=== PATIENT | male | born 1970 | race Caucasian/White ===

== ENCOUNTER 2017-12-03 14:02 | Emergency (ER) | payer OTHER ==
[~2017-12-03] VITALS: Ht 167.6 cm; Wt 97.5 kg
--- NOTE | ~2017-12-03 | EKG ---
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
[~2017-12-03 14:02] MED LIST: 'CLONIDINE0.1 MG PO; ATIVAN1 MG PO; Anusol Hc,Anuco25 MG PO; BACTRIM DS 8001 TA1 PO; HYDROXYZINE PAM50 MG PO; IMITREX50 MG PO; MOTRIN800 MG PO; NICOTINE T21 MG/24 H T; NKHM; NKHM PO; ROBAXIN750 MG PO; SUBUTEX8 M1 SL; THERA1 TAB PO; TOBRADEX 0.1%-0.5 ML OPH; VITAMIN B-11 TAB PO; ZOFRAN ODT4 MG SL; [UNRECOGNIZED DRUG - REMARK]
[2017-12-03 14:24] LABS: BASO % 0.5 % (0.0-1.0); EOS # 0.6 10*3/uL (0.0-0.4); EOS % 7.2 % (1.0-4.0); HEMATOCRIT 40.1 % (42.0-52.0); HEMOGLOBIN 13.6 g/dl (14.0-18.0); LYMPH # 1.9 10*3/uL (1.3-4.4); LYMPH % 23.2 % (27.0-41.0); MEAN CELL VOLUME 93.9 fl (80.0-94.0); MEAN CORPUSCULAR HGB 31.9 pg (27.0-31.0); MEAN CORPUSCULAR HGB CONC 33.9 g/dl (33.0-37.0); MEAN PLATELET VOLUME 9.3 fl (9.6-12.3); MONO # 0.6 10*3/uL (0.1-1.0); MONO % 7.6 % (3.0-9.0); NEUT # 5.1 10*3/uL (2.3-7.9); NEUT % 61.3 % (47.0-73.0); PLATELET COUNT AUTOMATED 283 10*3/uL (130-400); RED BLOOD COUNT 4.27 10*6/uL (4.50-5.90); RED CELL DISTRI WIDTH 12.5 % (0-14.5); WHITE BLOOD COUNT 8.3 10*3/uL (4.8-10.8)
[2017-12-03 14:41] LABS: ALBUMIN 3.7 gm/dl (3.1-4.5); ALKALINE PHOSPHATASE 77 U/L (45-117); BUN 8 mg/dl (7-24); CHLORIDE 105 mmol/L (98-107); CREATININE 0.77 mg/dL (0.70-1.30); POTASSIUM 3.9 mmol/L (3.5-5.1); SGOT/AST 46 IU/L (3-35); SGPT/ALT 61 U/L (12-78); SODIUM 137 mmol/L (136-145)
[2017-12-03 14:51] LABS: ETHYL ALCOHOL < 3.0 mg/dl (<3)
[2017-12-03 14:52] LABS: ACETAMINOPHEN (TYLENOL) < 2.0 ug/ml (10-30)
[2017-12-03 15:42] LABS: URINE AMPHETAMINES < 1000 (1000ng/ml); URINE BARBITURATES < 200 (200ng/ml); URINE BENZODIAZEPINES < 200 (200ng/ml); URINE CANNABINOIDS (THC) < 50 (50ng/ml); URINE COCAINE < 300 (300ng/ml); URINE METHADONE < 300 (300ng/ml); URINE OPIATES < 300 (300ng/ml)
[2017-12-03 15:44] LABS: BILIRUBIN NEGATIVE (NEGATIVE); BLOOD NEGATIVE (NEGATIVE); CLARITY CLEAR (CLEAR); COLOR YELLOW (YELLOW); GLUCOSE NEGATIVE (NEGATIVE); KETONE NEGATIVE (NEGATIVE); LEUKO ESTERASE NEGATIVE (NEGATIVE); NITRITE NEGATIVE (NEGATIVE); PH 7.5 (5.0-9.0); SPECIFIC GRAVITY 1.015 (1.005-1.030)
[2017-12-03 15:46] LABS: URINE PHENCYCLIDINE < 25 (25ng/ml)
[2017-12-03 15:51] LABS: WBC 0-2 wbc/hpf (0-5)
[2017-12-03] MEDS ORDERED: ZOFRAN4 MG PO (16:27)
[2017-12-03] MEDS ORDERED: ZANTAC 150150 MG PO (16:27)
[2017-12-03] MEDS ORDERED: VISTARIL25 MG PO (16:27)
== END 2017-12-03 16:45 | disposition home or self-care (01) ==
LOC: ED 14:02
PROVIDERS: Nurse Practitioner Family
DX: F41.9 Anxiety disorder, unspecified (principal); R03.0 Elevated blood-pressure reading, without diagnosis of hypertension; F11.10 Opioid abuse, uncomplicated; F19.10 Other psychoactive substance abuse, uncomplicated; G43.909 Migraine, unspecified, not intractable, without status migrainosus; F17.210 Nicotine dependence, cigarettes, uncomplicated

== ENCOUNTER 2018-01-15 14:21 | Emergency (ER) | payer OTHER ==
[~2018-01-15] VITALS: Ht 167.6 cm; Wt 95.3 kg
[~2018-01-15 14:21] MED LIST changes: +VISTARIL25 MG PO; +ZANTAC 150150 MG PO; +ZOFRAN4 MG PO
[2018-01-15 15:01] LABS: URINE AMPHETAMINES < 1000 (1000ng/ml); URINE BARBITURATES < 200 (200ng/ml); URINE BENZODIAZEPINES < 200 (200ng/ml); URINE CANNABINOIDS (THC) < 50 (50ng/ml); URINE COCAINE < 300 (300ng/ml); URINE METHADONE < 300 (300ng/ml); URINE OPIATES > 300 (300ng/ml); URINE PHENCYCLIDINE < 25 (25ng/ml)
[2018-01-15 15:07] LABS: ALBUMIN 3.9 gm/dl (3.1-4.5); ALKALINE PHOSPHATASE 73 U/L (45-117); BUN 10 mg/dl (7-24); CHLORIDE 108 mmol/L (98-107); CREATININE 0.96 mg/dL (0.70-1.30); POTASSIUM 4.3 mmol/L (3.5-5.1); SGOT/AST 37 IU/L (3-35); SGPT/ALT 80 U/L (12-78); SODIUM 138 mmol/L (136-145); TOTAL PROTEIN 8.3 gm/dL (6.4-8.2)
== END 2018-01-15 15:14 | disposition home or self-care (01) ==
LOC: ED 14:21
PROVIDERS: Physician Assistant
DX: R25.1 Tremor, unspecified (principal); R61 Generalized hyperhidrosis; R45.1 Restlessness and agitation; R82.5 Elevated urine levels of drugs, medicaments and biological substances; F17.210 Nicotine dependence, cigarettes, uncomplicated; Z13.89 Encounter for screening for other disorder

== ENCOUNTER 2018-03-25 16:53 | Inpatient (IN) | payer OTHER ==
[~2018-03-25] VITALS: Ht 167.6 cm; Wt 96.8 kg
--- NOTE | ~2018-03-25 | EKG ---
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
[2018-03-25 16:54] VITALS: BP 118/81; BP 136/81
[2018-03-25 18:19] LABS: BILIRUBIN NEGATIVE (NEGATIVE); BLOOD NEGATIVE (NEGATIVE); CLARITY CLEAR (CLEAR); COLOR YELLOW (YELLOW); GLUCOSE NEGATIVE (NEGATIVE); KETONE NEGATIVE (NEGATIVE); LEUKO ESTERASE NEGATIVE (NEGATIVE); NITRITE NEGATIVE (NEGATIVE); PH 5.5 (5.0-9.0); SPECIFIC GRAVITY 1.025 (1.005-1.030); UROBILINOGEN 0.2 E.U./dl (0.2-1.0)
[2018-03-25 18:26] LABS: BACTERIA TRACE; EPITHELIAL CELLS 0-2; MUCOUS TRACE; RBC 0-2 rbc/hpf (0-2); WBC 0-2 wbc/hpf (0-5)
[2018-03-25 18:29] LABS: URINE AMPHETAMINES < 1000 (1000ng/ml); URINE BARBITURATES < 200 (200ng/ml); URINE BENZODIAZEPINES < 200 (200ng/ml); URINE CANNABINOIDS (THC) < 50 (50ng/ml); URINE COCAINE > 300 (300ng/ml); URINE METHADONE < 300 (300ng/ml); URINE OPIATES > 300 (300ng/ml)
[2018-03-25 18:34] LABS: URINE PHENCYCLIDINE < 25 (25ng/ml)
[2018-03-25 18:43] VITALS: BP 126/77
--- NOTE | 2018-03-25 18:43 | NUR ---
48 year old MALE admitted to room # for stabilization. 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 Compliant with admission procedure. Patient denies any anxiety, but is unable to sit still, taps toes to floor continuously, looks about room, unable to focus eyes on nurse during interview. See assessment forms for additional information about patient status.
[2018-03-25 19:30] LABS: BASO # 0.1 10*3/uL (0.0-0.1); BASO % 0.8 % (0.0-1.0); EOS # 0.8 10*3/uL (0.0-0.4); EOS % 12.7 % (1.0-4.0); HEMATOCRIT 41.8 % (42.0-52.0); HEMOGLOBIN 14.1 g/dl (14.0-18.0); LYMPH # 2.2 10*3/uL (1.3-4.4); LYMPH % 37.1 % (27.0-41.0); MEAN CELL VOLUME 94.8 fl (80.0-94.0); MEAN CORPUSCULAR HGB CONC 33.7 g/dl (33.0-37.0); MEAN PLATELET VOLUME 9.4 fl (9.6-12.3); MONO # 0.7 10*3/uL (0.1-1.0); MONO % 11.7 % (3.0-9.0); NEUT # 2.3 10*3/uL (2.3-7.9); NEUT % 37.5 % (47.0-73.0); PLATELET COUNT AUTOMATED 260 10*3/uL (130-400); RED BLOOD COUNT 4.41 10*6/uL (4.50-5.90)
--- NOTE | 2018-03-25 19:44 | NUR ---
PT. C/O ANXIETY, MUSCLE CRAMPING, STOMACHE CRAMPING. VISTARIL, ROBAXIN AND BENTYL GIVEN PER ORDER FOR WITHDRAWL SYMPTOMS.
[2018-03-25 19:47] LABS: ALBUMIN 3.4 gm/dl (3.1-4.5); ALKALINE PHOSPHATASE 80 U/L (45-117); BUN 11 mg/dl (7-24); CHLORIDE 109 mmol/L (98-107); CREATININE 0.92 mg/dL (0.70-1.30); ETHYL ALCOHOL < 3.0 mg/dl (<3); POTASSIUM 4.1 mmol/L (3.5-5.1); SGOT/AST 51 IU/L (3-35); SGPT/ALT 87 U/L (12-78); SODIUM 139 mmol/L (136-145); TOTAL PROTEIN 7.5 gm/dL (6.4-8.2)
[2018-03-25 20:00] VITALS: BP 121/76
--- NOTE | 2018-03-25 20:44 | NUR ---
WITHDRAWAL MEDICATIONS VISTARIL, ROBAXIN, AND BENTYL EFFECTIVE, PATIENT SLEEPING COMFORTABLY.
--- NOTE | 2018-03-25 23:36 | NUR ---
24 HR chart check completed.
[2018-03-26] VITALS: BP 109/95
[2018-03-26 04:00] VITALS: BP 106/63
--- NOTE | 2018-03-26 05:07 | NUR ---
PT. C/O MUSCLE AND STOMACH CRAMPING. BENTYL AND ROBAXIN GIVEN PER ORDER FOR WITHDRAWL SYMPTOMS. SEE MAR.
--- NOTE | 2018-03-26 06:00 | NUR ---
WITHDRAWAL MEDICATIONS ROBAXIN AND BENTYL EFFECTIVE FOR MUSCLE CRAMPING. PT SLEEPING.
[2018-03-26 08:00] VITALS: BP 107/69
[2018-03-26 12:00] VITALS: BP 124/85
--- NOTE | 2018-03-26 15:49 | NUR ---
VISTARIL GIVEN FOR ANXIETY. MOTRIN AND REQUIP GIVEN FOR LEG PAIN AND CRAMPTING.
[2018-03-26 16:00] VITALS: BP 124/86
--- NOTE | 2018-03-26 16:50 | NUR ---
STATES THAT MEDICATION WAS NOT EFFECTIVE FOR LEG PAIN. REFUSING TYLENOL AT THIS TIME. STATES THAT HE IS GOING TO TRY TO WALK AROUND.
[2018-03-26 20:00] VITALS: BP 123/58
--- NOTE | 2018-03-26 21:02 | NUR ---
ROBAXIN GIVEN PER PT REQUEST FOR RESTLESS MUSCLES. SCHEDULED SUBUTEX PROVIDED AT THIS TIME. PT DENIES FURTHER NEEDS, STATES HE WOULD LIKE TO SLEEP. WILL MONITOR.
--- NOTE | 2018-03-26 23:22 | NUR ---
24 HR chart check completed.
[2018-03-27] VITALS: BP 126/64
--- NOTE | 2018-03-27 00:30 | NUR ---
Patient resting. Responding to scheduled medications with fewer complaints of pain and anxiety.
--- NOTE | 2018-03-27 05:08 | NUR ---
Patient displaying withdrawal symptoms, including: irritability, anxiousness, restlessness and agitation. Scheduled/PRN medications provided, SEE EMAR. Will continue to monitor medication effectiveness.
--- NOTE | 2018-03-27 06:00 | NUR ---
Patient resting. Responding to scheduled medications with fewer complaints of pain and anxiety.
[2018-03-27 08:00] VITALS: BP 134/82
--- NOTE | 2018-03-27 09:11 | NUR ---
DR. PATEL TO CONTINUE HOME MEDICATION AND TOLD TO STOP CARDIZEM DRIP. HEART RATE IN THE 80S AT THIS TIME.
--- NOTE | 2018-03-27 09:12 | NUR ---
PATIENTS MORNING MEDICATIONS GIVEN. PATIENT VOICES NO COMPLAINTS AT THIS TIME. WILL CONTINUE TO MONITOR.
--- NOTE | 2018-03-27 11:33 | NUR ---
PATIENT MEETS [facility]. PATIENT WANTS TO GO TO [facility] FOR INPATIENT TREATMENT. PATIENT WAS PUT ON A WAITING LIST. PATIENT IS REQUIRING TO CALL FACILITY ON DAILY BASIS. [facility] STAFF WILL PROVIDE PATIENT WITH A LIST A NA AND AA MEETINGS IN THE LOCAL AREA. PATIENT AGREES AND UNDERSTAND HIS AFTERCARE PLAN. PRINCESS MOULTON B.A. SLITTER CREASER SLOTTER OPERATOR
[2018-03-27 12:00] VITALS: BP 118/95
--- NOTE | 2018-03-27 14:13 | NUR ---
PATIENT MEDICATED WITH VISTARIL. PATIENT STATES HE IS REALLY ANXIOUS
[2018-03-27 16:00] VITALS: BP 122/77
--- NOTE | 2018-03-27 16:12 | NUR ---
[facility] STAFF RECEIVED A CALL FROM [facility]. THEY STATED THAT SINCE HIS GIRLFRIEND IN AT THEIR FACILITY, THE PATIENT IS UNABLE TO GO AT THIS TIME. PATIENT AGREED TO HAVE [facility] SEND ASSESSMENT TO [facility]UAN [facility]OS[facility] TO CHECK FOR AVAILABILITY. [facility] STAFF PROVIDED PATIENT WITH LOCAL AA/NA MEEETINGS IN HIS LOCAL AREA. PRINCESS MOULTON B.A. STACKER ATTENDANT
[2018-03-27 20:00] VITALS: BP 133/79
--- NOTE | 2018-03-27 21:30 | NUR ---
TOOK OVER CARE OF PT, PT LYING IN BED, ASSESSMENT COMPLETE. PT C/O MUSCLE ACHES, STOMACH CRAMPS, RESTLESS LEGS, AND INSOMNIA. PT STATES THAT TRAZODOE INCREASES HIS RESTLESS LEGS SYMPTOMS AND STATES THAT BENADRYL WORKS BETTER FOR HIM. PT ALSO STATES THAT HE HAS TAKEN CLONIDINE IN THE PAST AND THAT HELPS WITH HIS ANXIETY. WILL NOTIFY PHYSICIAN. CALL LIGHT IN REACH.
--- NOTE | 2018-03-27 22:00 | NUR ---
DR MENDEZ NOTIFIED THAT PT IS REQUESTING CLONIDINE AND BENADRYL FOR ANXIETY AND SLEEP. NEW ORDERS RECEIVED FOR ONE TIME ORDER OF BENADRYL 25 MG PO. PT AWARE.
--- NOTE | 2018-03-27 23:50 | NUR ---
PRN MEDICATION EFFECTIVE.
--- NOTE | 2018-03-27 23:50 | NUR ---
PT GIVEN ROBAXIN, REQUIP, BENTYL, AND BENADRYL FOR WITHDRAWAL SYMPTOMS. WILL MONITOR FOR EFFECTIVENESS.
[2018-03-28] VITALS: BP 114/76
[2018-03-28 08:00] VITALS: BP 121/78
--- NOTE | 2018-03-28 08:23 | NUR ---
PT MEDICATED WITH ROBAXIN AND REQUIP FOR C/O RESTLESS LEGS AND LEG ACHES. WILL MONITOR FOR EFFECTIVENESS.
[2018-03-28] MEDS ORDERED: METHOCARBAMOL750 M1 PO (11:12)
--- NOTE | 2018-03-28 11:35 | NUR ---
Discharge instructions reviewed with patient/family. Patient receptive and verbalizes understanding. Follow-up care arranged. Written instructions given to patient/family. [facility] CALLED AND PATIENT AMBULATORY OFF FLOOR TO MEET CAB. RAMESH MANN
[2018-08-11] MEDS ORDERED: IBU800 MG PO (15:54)
== END 2018-03-28 11:35 | disposition home or self-care (01) | DRG 897 ==
LOC: ED 16:53 → 4E 18:17 → EDHOLD 18:17 → 4E 18:26
PROVIDERS: Emergency Medicine; Internal Medicine Nephrology; ADMIT Internal Medicine
DX: F11.23 Opioid dependence with withdrawal (principal); R61 Generalized hyperhidrosis; B19.20 Unspecified viral hepatitis C without hepatic coma; Z71.6 Tobacco abuse counseling; F12.10 Cannabis abuse, uncomplicated; F41.9 Anxiety disorder, unspecified; G43.909 Migraine, unspecified, not intractable, without status migrainosus; D75.89 Other specified diseases of blood and blood-forming organs; E87.8 Other disorders of electrolyte and fluid balance, not elsewhere classified; R74.0 Nonspecific elevation of levels of transaminase and lactic acid dehydrogenase [LDH]; F17.210 Nicotine dependence, cigarettes, uncomplicated; F14.10 Cocaine abuse, uncomplicated; Z72.89 Other problems related to lifestyle; Z82.49 Family history of ischemic heart disease and other diseases of the circulatory system; Z83.3 Family history of diabetes mellitus

== ENCOUNTER 2018-08-21 09:48 | Emergency (ER) | payer OTHER ==
[~2018-08-21] VITALS: Ht 167.6 cm; Wt 95.3 kg
[~2018-08-21 09:48] MED LIST changes: +IBU800 MG PO; +METHOCARBAMOL750 M1 PO
[2018-08-21 10:35] LABS: BASO # 0.1 10*3/uL (0.0-0.1); BASO % 0.8 % (0.0-1.0); EOS # 0.5 10*3/uL (0.0-0.4); EOS % 7.8 % (1.0-4.0); HEMATOCRIT 46.7 % (42.0-52.0); HEMOGLOBIN 15.6 g/dl (14.0-18.0); LYMPH # 1.6 10*3/uL (1.3-4.4); LYMPH % 26.8 % (27.0-41.0); MEAN CELL VOLUME 95.7 fl (80.0-94.0); MEAN CORPUSCULAR HGB CONC 33.4 g/dl (33.0-37.0); MEAN PLATELET VOLUME 9.3 fl (9.6-12.3); MONO # 0.6 10*3/uL (0.1-1.0); MONO % 10.1 % (3.0-9.0); NEUT # 3.3 10*3/uL (2.3-7.9); NEUT % 54.2 % (47.0-73.0); PLATELET COUNT AUTOMATED 416 10*3/uL (130-400); RED BLOOD COUNT 4.88 10*6/uL (4.50-5.90); RED CELL DISTRI WIDTH 12.8 % (0-14.5); WHITE BLOOD COUNT 6.1 10*3/uL (4.8-10.8)
[2018-08-21 10:51] LABS: ALBUMIN 3.8 gm/dl (3.1-4.5); ALKALINE PHOSPHATASE 78 U/L (45-117); BUN 14 mg/dl (7-24); CHLORIDE 106 mmol/L (98-107); CREATININE 0.92 mg/dL (0.70-1.30); LIPASE 137 U/L (73-393); POTASSIUM 4.4 mmol/L (3.5-5.1); SGOT/AST 22 IU/L (3-35); SGPT/ALT 40 U/L (12-78); SODIUM 138 mmol/L (136-145); TOTAL PROTEIN 8.5 gm/dL (6.4-8.2)
[2018-08-21] MEDS ORDERED: Motrin,Rufen800 MG PO (11:21)
[2018-08-21] MEDS ORDERED: ZOFRAN4 MG PO (11:21)
[2018-08-21] MEDS ORDERED: PERCOCET 5-3251 EACH PO (11:21)
== END 2018-08-21 11:25 | disposition home or self-care (01) ==
LOC: ED 09:48
PROVIDERS: Emergency Medicine
DX: S82.832D Other fracture of upper and lower end of left fibula, subsequent encounter for closed fracture with routine healing (principal); R11.10 Vomiting, unspecified; G43.909 Migraine, unspecified, not intractable, without status migrainosus; F12.10 Cannabis abuse, uncomplicated; F11.10 Opioid abuse, uncomplicated; F17.200 Nicotine dependence, unspecified, uncomplicated; Z79.899 Other long term (current) drug therapy; W17.2XXD Fall into hole, subsequent encounter

== ENCOUNTER 2018-10-21 19:36 | Inpatient (IN) | payer OTHER ==
[~2018-10-21] VITALS: Ht 167.6 cm
--- NOTE | ~2018-10-21 | EKG ---
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: Annalise Adams : 1970 Requested By: RASHAD HERNANDEZ Order Number: [id number] Reading MD: Elijah Berger Measurements Intervals [place] Rate: 100 P: 42 LA: 132 QRS: 7 QRSD: 80 T: 47 QT: 328 QTc: 423 Interpretive Statements Sinus tachycardia Left atrial enlargement Low voltage, precordial leads Abnormal R-wave progression, early transition Compared to ECG 03/25/2018 18:54:11 Atrial abnormality now present Sinus rhythm no longer present Electronically Signed On 10-22-2018 9:07:21 PDT by Elijah Berger CM:EKGRPT:ELECTROCARDIOGRAM REPORT [id number] RASHAD BROWER DRAFT REPORT RASHAD HINSON
[~2018-10-21 19:36] MED LIST changes: +Motrin,Rufen800 MG PO; +PERCOCET 5-3251 EACH PO
[2018-10-21 19:40] VITALS: BP 102/57
[2018-10-21 20:22] LABS: BASO # 0.1 10*3/uL (0.0-0.1); BASO % 0.4 % (0.0-1.0); EOS % 0.3 % (1.0-4.0); HEMATOCRIT 42.7 % (42.0-52.0); HEMOGLOBIN 14.5 g/dl (14.0-18.0); LYMPH # 1.5 10*3/uL (1.3-4.4); LYMPH % 10.3 % (27.0-41.0); MEAN CELL VOLUME 94.3 fl (80.0-94.0); MEAN PLATELET VOLUME 10.3 fl (9.6-12.3); MONO # 0.9 10*3/uL (0.1-1.0); MONO % 6.1 % (3.0-9.0); NEUT # 11.6 10*3/uL (2.3-7.9); NEUT % 82.5 % (47.0-73.0); PLATELET COUNT AUTOMATED 430 10*3/uL (130-400); RED BLOOD COUNT 4.53 10*6/uL (4.50-5.90); RED CELL DISTRI WIDTH 13.3 % (0-14.5)
[2018-10-21 21:05] LABS: ALBUMIN 4.3 gm/dl (3.1-4.5); CREATININE 2.19 mg/dL (0.70-1.30); POTASSIUM 4.4 mmol/L (3.5-5.1); TOTAL PROTEIN 9.1 gm/dL (6.4-8.2); TROPONIN I 0.043 ng/ml (<0.045)
[2018-10-21 22:30] VITALS: BP 113/68
--- NOTE | 2018-10-21 22:30 | NUR ---
A 48, admitted to , under the services of MAYNOR Palacios DO with a diagnosis of ORTHOSTATIC HYPOTENSION. KATELYNN. Chief complaint is SYNCOPY X 1 WK. INCREASED WEAKNESS AND FATIGUE. INCREASED THRIST. ADMITS TO HEROIN USE 10/21 AM. Patient arrived via wheel chair from ER. Monitor applied. Initial assessment completed. Vital signs taken and recorded. MAYNOR PALACIOS DO / DR AMOS notified of admission to the unit. Orders received. See assessment for past medical history, medications and allergies. Patient and/or family oriented to unit. [facility] visitation policy reviewed. Clothing/patient valuable form completed. ANA MARÍA LARKIN
[2018-10-21] MEDS ORDERED: SUBOXONE 8 MG-1 EACH SL (22:44)
[2018-10-21 22:47] LABS: ACT PARTIAL THROMBO TIME 23.4 SECONDS (20.0-32.1); INTERNATIONAL NORM RATIO 0.9 (2.0-3.5)
--- NOTE | 2018-10-21 23:18 | NUR ---
REQUESTED AND RECEIVED RESTORIL TO ASSIST WITH SLEEP. WILL MONITOR FOR EFFECTIVENESS
[2018-10-22] VITALS: BP 113/68
--- NOTE | 2018-10-22 00:30 | NUR ---
EARLIER RESTORIL EFFECTIVE. SLEEPING. RESPIRATIONS EASY. VSS. IV FLUIDS MAINTAINED. CALL LIGHT WITHIN REACH
--- NOTE | 2018-10-22 02:20 | NUR ---
SLEEPING SNORING LOUDLY. RESPIRATIONS EASY. IV FLUIDS MAINTAINED. CALL LIGHT WITHIN REACH
--- NOTE | 2018-10-22 06:15 | NUR ---
REFUSED AM LABS. STILL HAS YET TO PROVIDE URINE. CUP PRESENT AT BEDSIDE
--- NOTE | 2018-10-22 07:00 | NUR ---
PATIENT SLEPT SINCE RECEIVING RESTORIL. AWAKENED THIS AM FOR ORTHOS LAYING 100/60 63 SITTING 106/70 65 STANDING 102/66 64 PATIENT COMPLAINS OF DIZZINESS
[2018-10-22 08:00] VITALS: BP 102/62
[2018-10-22 09:42] LABS: BILIRUBIN NEGATIVE (NEGATIVE); BLOOD NEGATIVE (NEGATIVE); CLARITY CLOUDY (CLEAR); COLOR YELLOW (YELLOW); GLUCOSE NEGATIVE (NEGATIVE); KETONE NEGATIVE (NEGATIVE); LEUKO ESTERASE NEGATIVE (NEGATIVE); NITRITE NEGATIVE (NEGATIVE); PH 5.5 (5.0-9.0); SPECIFIC GRAVITY >= 1.030 (1.005-1.030); UROBILINOGEN 0.2 E.U./dl (0.2-1.0)
[2018-10-22 10:01] LABS: BACTERIA 2+; HYALINE CAST 20-25; MUCOUS 2+
[2018-10-22 12:00] VITALS: BP 123/77
[2018-10-22 16:00] VITALS: BP 119/59
[2018-10-22 16:59] LABS: URINE AMPHETAMINES < 1000 (1000ng/ml); URINE BARBITURATES < 200 (200ng/ml); URINE BENZODIAZEPINES < 200 (200ng/ml); URINE CANNABINOIDS (THC) < 50 (50ng/ml); URINE COCAINE < 300 (300ng/ml); URINE METHADONE < 300 (300ng/ml); URINE OPIATES > 300 (300ng/ml)
[2018-10-22 17:02] LABS: URINE PHENCYCLIDINE < 25 (25ng/ml)
--- NOTE | 2018-10-22 17:35 | NUR ---
PT LEFT FLOOR SEEN SITTING IN VISITORS TRUCK FOR SEVERAL MINUTES, RETURNED TO FLOOR WITH PIPE STRAIGHTENER. NOTIFIED. PER HOSPITAL POLCI PATIENT O LEAVE AMA
== END 2018-10-22 17:35 | disposition left against medical advice (07) | DRG 640 ==
LOC: ED 19:36 → EDHOLD 21:32 → 5E 21:57
PROVIDERS: Physician Assistant; Student in an Organized Health Care Education/Training Program; ADMIT Internal Medicine
DX: E86.0 Dehydration (principal); N17.0 Acute kidney failure with tubular necrosis; R65.10 Systemic inflammatory response syndrome (SIRS) of non-infectious origin without acute organ dysfunction; I95.1 Orthostatic hypotension; R73.9 Hyperglycemia, unspecified; Z53.21 Procedure and treatment not carried out due to patient leaving prior to being seen by health care provider; D75.89 Other specified diseases of blood and blood-forming organs; F14.10 Cocaine abuse, uncomplicated; F17.210 Nicotine dependence, cigarettes, uncomplicated; B19.20 Unspecified viral hepatitis C without hepatic coma; F12.10 Cannabis abuse, uncomplicated; F11.10 Opioid abuse, uncomplicated; F41.9 Anxiety disorder, unspecified; Z71.6 Tobacco abuse counseling; Z83.3 Family history of diabetes mellitus; Z82.49 Family history of ischemic heart disease and other diseases of the circulatory system; Z80.8 Family history of malignant neoplasm of other organs or systems; Z79.899 Other long term (current) drug therapy

== ENCOUNTER 2018-12-01 11:49 | Emergency (ER) | payer OTHER ==
[~2018-12-01] VITALS: Ht 167.6 cm; Wt 93.0 kg
--- NOTE | ~2018-12-01 | EKG ---
[place], [place] ELECTROCARDIOGRAM REPORT NAME: ISAIAS BAH UNIT #: [id number] ROOM: DOCTOR: LEONARDA DRAFT REPORT BIRTHDATE: [birth year] [facility] Test Date: 2018-12-01 Test Time: 11:51:16 Pat Name: ISAIAS BAH Department: Room: Gender: Religion Professor: Mariah Puckett : 1970 Requested By: ANDREA HERRING Order Number: [id number] Reading MD: Efrain Joyner MD Measurements Intervals [place] Rate: 97 P: 64 SC: 139 QRS: 30 QRSD: 101 T: 52 QT: 371 QTc: 472 Interpretive Statements Sinus rhythm Low voltage, precordial leads RSR' in V1 or V2, right VCD or RVH Baseline wander in lead(s) V1 Compared to ECG 10/21/2018 20:16:14 Right ventricular hypertrophy now present RSR' in V1 or V2 now present Sinus tachycardia no longer present Atrial abnormality no longer present Electronically Signed On 12-03-2018 7:45:05 PDT by Efrain Joyner MD CM:EKGRPT:ELECTROCARDIOGRAM REPORT [id number] ANDREA PHELAN DRAFT REPORT ANDREA HERRING DO
[~2018-12-01 11:49] MED LIST changes: +SUBOXONE 8 MG-1 EACH SL
== END 2018-12-01 14:47 | disposition left against medical advice (07) ==
LOC: ED 11:49
DX: T40.1X1A Poisoning by heroin, accidental (unintentional), initial encounter (principal); R40.20 Unspecified coma; F11.10 Opioid abuse, uncomplicated; F14.10 Cocaine abuse, uncomplicated; F12.90 Cannabis use, unspecified, uncomplicated; F17.210 Nicotine dependence, cigarettes, uncomplicated; Y92.098 Other place in other non-institutional residence as the place of occurrence of the external cause

== ENCOUNTER 2020-02-12 16:56 | Emergency (ER) | payer OTHER ==
[~2020-02-12] VITALS: Wt 99.8 kg
[2020-02-12] MEDS ORDERED: NAPROSYN500 MG PO (18:59)
[2020-02-12] MEDS ORDERED: MEDROL DOSEPAK4 MG PO (18:59)
== END 2020-02-12 19:12 | disposition home or self-care (01) ==
LOC: ED 16:56
DX: M25.562 Pain in left knee (principal); M79.662 Pain in left lower leg; F41.9 Anxiety disorder, unspecified

== ENCOUNTER 2022-10-25 11:15 | Emergency (ER) | payer OTHER ==
[~2022-10-25] VITALS: Ht 177.8 cm; Wt 90.7 kg
[~2022-10-25 11:15] MED LIST changes: +MEDROL DOSEPAK4 MG PO; +NAPROSYN500 MG PO
[2022-10-25] MEDS ORDERED: KEFLEX 500 MG E2 CAP PO (15:40)
== END 2022-10-25 15:40 | disposition home or self-care (01) ==
LOC: ED 11:15
DX: S61.412A Laceration without foreign body of left hand, initial encounter (principal); F12.90 Cannabis use, unspecified, uncomplicated; F17.200 Nicotine dependence, unspecified, uncomplicated; F14.10 Cocaine abuse, uncomplicated; W26.8XXA Contact with other sharp object(s), not elsewhere classified, initial encounter; Y93.89 Activity, other specified; Y92.89 Other specified places as the place of occurrence of the external cause; Y99.0 Civilian activity done for income or pay

== ENCOUNTER 2022-11-06 13:17 | Emergency (ER) | payer OTHER ==
[~2022-11-06] VITALS: Ht 167.6 cm; Wt 92.5 kg
[~2022-11-06 13:17] MED LIST changes: +KEFLEX 500 MG E2 CAP PO
[2022-11-06] MEDS ORDERED: BUPRENORPHINE-1 EAC2 SL (13:42)
[2022-11-06] MEDS ORDERED: PERIDEX118 ML PO (15:08)
[2022-11-06] MEDS ORDERED: MOTRIN 600 MG E4 TAB PO (15:14)
== END 2022-11-06 15:17 | disposition home or self-care (01) ==
LOC: ED 13:17
DX: K02.9 Dental caries, unspecified (principal); S61.412D Laceration without foreign body of left hand, subsequent encounter; F41.9 Anxiety disorder, unspecified; G43.909 Migraine, unspecified, not intractable, without status migrainosus; F14.10 Cocaine abuse, uncomplicated; F12.90 Cannabis use, unspecified, uncomplicated; F17.200 Nicotine dependence, unspecified, uncomplicated; F19.10 Other psychoactive substance abuse, uncomplicated; X58.XXXD Exposure to other specified factors, subsequent encounter

== ENCOUNTER 2023-07-07 10:45 | Emergency (ER) | payer SELFPAY ==
[~2023-07-07] VITALS: Ht 167.6 cm; Wt 95.3 kg
[~2023-07-07 10:45] MED LIST changes: +BUPRENORPHINE-1 EAC2 SL; +MOTRIN 600 MG E4 TAB PO; +PERIDEX118 ML PO
[2023-07-07] MEDS ORDERED: PENICILLIN VK500 MG PO (11:06)
[2023-07-07] MEDS ORDERED: Motrin,Rufen800 MG PO (11:06)
[2023-07-07] MEDS ORDERED: BENZOCAINE 20% 11.9 GM GEL T STA (11:07)
[2023-07-07] MEDS ORDERED: Lidocaine Hydrochloride 15 ML UDC PO STA (11:07)
[2023-07-07] MEDS ORDERED: Ketorolac Tromethamine 60 MG/2 ML VIAL IM ONE (11:10)
[2023-07-07] MEDS ORDERED: PENICILLIN V POTASSIUM 500 MG TAB PO ONE (11:10)
== END 2023-07-07 11:15 | disposition home or self-care (01) ==
LOC: ED 10:45
DX: K04.7 Periapical abscess without sinus (principal); K03.81 Cracked tooth; F41.9 Anxiety disorder, unspecified; F17.210 Nicotine dependence, cigarettes, uncomplicated; Z79.899 Other long term (current) drug therapy

== ENCOUNTER 2023-08-26 11:40 | Emergency (ER) | payer SELFPAY ==
[~2023-08-26] VITALS: Ht 167.6 cm; Wt 95.3 kg
[~2023-08-26 11:40] MED LIST changes: +PENICILLIN VK500 MG PO
[2023-08-26] MEDS ORDERED: Motrin,Rufen800 MG PO (11:59)
[2023-08-26] MEDS ORDERED: AMOX-CLAV 875-1 EACH PO (11:59)
[2023-08-26] MEDS ORDERED: ACETAMINOPHEN 325 MG TAB PO ONE (12:00)
[2023-08-26] MEDS ORDERED: IBUPROFEN 600 MG TAB PO ONE (12:00)
[2023-08-26] MEDS ORDERED: AMOXICILLIN 500 MG CAP PO ONE (12:00)
== END 2023-08-26 12:09 | disposition home or self-care (01) ==
LOC: ED 11:40
DX: K04.7 Periapical abscess without sinus (principal); F41.9 Anxiety disorder, unspecified; G43.909 Migraine, unspecified, not intractable, without status migrainosus; F14.10 Cocaine abuse, uncomplicated; F12.90 Cannabis use, unspecified, uncomplicated; F17.200 Nicotine dependence, unspecified, uncomplicated